=== PATIENT | female | born 1955 | race African-American/Black ===

== ENCOUNTER 2016-05-11 21:28 | Emergency (ER) | payer MEDICAID ==
[2016-05-11 22:33] LABS: BASOPHILS 0.1 % (0.0-2.0); EOSINOPHILS 0.5 % (0-7); HEMATOCRIT 42.6 % (36.0-48.0); HEMOGLOBIN 14.3 g/dL (12-16); IMMATURE GRANULOCYTES 0.1 % (0-5); LYMPHOCYTES 34.9 % (15-50); MCH 30.8 pg (26.0-34.0); MCHC 33.6 g/dL (31.0-37.0); MCV 91.6 fL (80.0-100.0); MEAN PLATELET VOLUME 9.6 fL (7.4-10.4); MONOCYTES 8.7 % (2-11); NEUTROPHILS 55.7 % (40-80); PLATELET COUNT 296 10x3/uL (130-400); RBC 4.65 10x6/uL (4.00-5.40); WBC 7.7 10x3/uL (4.8-10.8)
[2016-05-11 22:49] LABS: ALBUMIN 3.8 g/dL (3.4-5.0); ANION GAP 11.9 mmol/L (8-16); BILIRUBIN - TOTAL 0.3 mg/dL (0.2-1.3); CALCIUM 9.1 mg/dL (8.5-10.1); CREATININE - SERUM 0.9 mg/dL (0.6-1.3); POTASSIUM - SERUM 3.9 mmol/L (3.5-5.1); PROTEIN - SERUM 7.9 g/dL (6.4-8.2)
[2016-05-11 23:36] LABS: APPEARANCE CLEAR (CLEAR); BILIRUBIN NEGATIVE (NEGATIVE); COLOR YELLOW (YELLOW); GLUCOSE 100 mg/dL (NEGATIVE); KETONE NEGATIVE (NEGATIVE); LEUKOCYTE ESTERASE NEGATIVE (NEGATIVE); NITRITE NEGATIVE (NEGATIVE); PROTEIN NEGATIVE (NEGATIVE); SPECIFIC GRAVITY 1.015 (1.005-1.020); UROBILINOGEN NORMAL (NORMAL)
[2016-05-12] MEDS ORDERED: GLYBURIDE5 M1 PO (23:37)
[2016-05-12] MEDS ORDERED: HYDROCODON-ACE1 EAC9 (23:39)
[2016-05-12] MEDS ORDERED: AMBIEN10 MG PO (23:39)
[2016-05-13 13:51] VITALS: BMI 32.9
== END 2016-05-12 00:45 | disposition home or self-care (01) ==
LOC: D.ER 21:28
PROVIDERS: Emergency Medicine
DX: R10.13 Epigastric pain (principal); F17.200 Nicotine dependence, unspecified, uncomplicated

== ENCOUNTER 2016-05-12 17:43 | Inpatient (IN) | payer MEDICAID ==
[~2016-05-12] VITALS: Ht 160 cm; Wt 83.9 kg
--- NOTE | 2016-05-12 18:47 | NUR ---
RECEIVED TO ROOM 2234 FROM MD OFFICE VIA . FAMILY IN ROOM. CALL LIGHT IN REACH.
[2016-05-12 19:00] LABS: BASOPHILS 0 % (0.0-2.0); EOSINOPHILS 0.2 % (0-7); HEMATOCRIT 43.5 % (36.0-48.0); HEMOGLOBIN 14.6 g/dL (12-16); IMMATURE GRANULOCYTES 0.4 % (0-5); LYMPHOCYTES 30.5 % (15-50); MCH 30.9 pg (26.0-34.0); MCHC 33.6 g/dL (31.0-37.0); MEAN PLATELET VOLUME 9.7 fL (7.4-10.4); NEUTROPHILS 57.9 % (40-80); PLATELET COUNT 286 10x3/uL (130-400); RBC 4.73 10x6/uL (4.00-5.40); RDW 12.9 % (11.5-14.5); WBC 8.4 10x3/uL (4.8-10.8)
--- NOTE | 2016-05-12 19:03 | NUR ---
IV SITED TO LEFT FOREARM WITH 22 GA X1 STICK. INFORMED VINCENT STEWART, THAT PATIENT WANTS DEMEROL IVP FOR PAIN. VERBALIZED UNDERSTANDING.
[2016-05-12 19:35] LABS: ALBUMIN 3.9 g/dL (3.4-5.0); ALKALINE PHOSPHATASE 94 U/L (46-116); ALT (SGPT) 36 U/L (10-68); AMYLASE - SERUM 82 U/L (25-115); BILIRUBIN - DIRECT 0.12 mg/dL (0.00-0.30); BILIRUBIN - INDIRECT 0.34 mg/dL (0.00-1.00); BILIRUBIN - TOTAL 0.46 mg/dL (0.2-1.3); CALCIUM 8.6 mg/dL (8.5-10.1); CARBON DIOXIDE 30.7 mmol/L (21.0-32.0); CHLORIDE - SERUM 101 mmol/L (98-107); CREATININE - SERUM 0.7 mg/dL (0.6-1.3); GAMMA GT 70 U/L (5-85); LIPASE 213 U/L (73-393); POTASSIUM - SERUM 4.2 mmol/L (3.5-5.1); PROTEIN - SERUM 8.1 g/dL (6.4-8.2); SODIUM 139 mmol/L (136-145); eGFR NON AFRICAN AMERICAN 90 mL/min (90-120)
[2016-05-12 19:36] LABS: CALC OSMOLALITY 278 mosm/kg (275-300); GLUCOSE 140 mg/dL (74-106); UREA NITROGEN 9 mg/dL (7-18)
[2016-05-12 22:55] VITALS: BP 157/81; BMI 33.0
[2016-05-12] MEDS ORDERED: GLYBURIDE5 M1 PO (23:37)
[2016-05-12] MEDS ORDERED: HYDROCODON-ACE1 EAC9 (23:39)
[2016-05-12] MEDS ORDERED: AMBIEN10 MG PO (23:39)
[2016-05-13 00:04] VITALS: BP 157/81
--- NOTE | 2016-05-13 01:35 | NUR ---
RESTING QUIETLY.NO DISTRESS NOTED. CL IN REACH.
[2016-05-13 03:59] VITALS: BP 142/45
--- NOTE | 2016-05-13 06:12 | NUR ---
AROUSES EASILY TO VERBAL STIMULI. NO DISTRESS NOTED. CL IN REACH.
--- NOTE | 2016-05-13 08:00 | NUR ---
PRN DEMEROL ADMINISTERED FOR ABDOMINAL PAIN 12/28. RELATES SHE HAS NOT SENT A DOCTOR AND WANTS TO KNOW WHAT IS GOING ON AND WANTING SOMETHING TO EAT.
[2016-05-13 08:34] VITALS: BP 143/86
--- NOTE | 2016-05-13 10:37 | NUR ---
DEMEROL 25MG ADMINSTERED TIMES ONE FOR PAIN POST EXAMINATION.
[2016-05-13 12:21] VITALS: BP 134/82
[2016-05-13 13:51] VITALS: Ht 160 cm; Wt 83.9 kg
[2016-05-13 15:10] VITALS: BP 151/74
--- NOTE | 2016-05-13 15:27 | NUR ---
RECEIVED PATIENT LAYING IN BED. FAMILY AT BEDSIDE. RATES PAIN 10/10 TO ABDOMEN. IV D5NS AT 120CC/HR PER LEFT ARM IV. ASKS FOR SOMETHING TO EAT AND WANTS TO KNOW WHEN HER TEST IS GOING TO BE DONE. FAMILY ASKING WHY SHE DOES NOT HAVE SOMETHING ON HER THAT RELATES WHO SHE IS. [place] SHOWED TO FAMILY AND THEY RELATED THEY DID NOT KNOW SHE HAD ONE ON. CALL LIGHT WITHIN REACH AND BED IN LOW POSITION.
--- NOTE | 2016-05-13 15:35 | NUR ---
DOWN FOR PIPIDA SCAN VIA WHEELCAHIR. PATIENT UPSET SHE COULD NOT HAVE PRN PAIN MED FOR 6 HOURS PRIOR TO TEST HOWEVER DID AGREE TO WAIT ON PAIN MED POST TEST.
[2016-05-13 20:00] VITALS: BP 135/82
--- NOTE | 2016-05-13 23:04 | NUR ---
ASSESSED AT THE BEGINNING OF THE SHIFT. PT IS ALERT AND ORIENTED, ABLE TO VERBALIZE NEEDS. SHE WAS C/O HURTING ALL OVER AND ESPECIALLY IN HER STOMACH AT THE BEGINNING OF THE SHIFT. SHE HAD COMPANY AT THE BEDSIDE. IT WAS EXPLAINED TO HER THAT SHE COULD RECEIVE IT AT 2130 AND SHE COULD ALSO TAKE HER SLEEPING PILL WHICH SHE WAS WANTING. SHE AGREED AND RESTED QUIET UNTILL THIS TIME AND THEN TOOK HER MEDS. SINCE THAT TIME SHE HAS BEEN ASLEEP WITH EVEN UNLABORED RESPIRATION AND NO DISTRESS NOTED. THE BED IS LOW, RAILS UP X'S 2 WITH THE CALL LIGHT AT HAND.
[2016-05-14] VITALS (13 sets, daily range): BP systolic 116–136; BP diastolic 63–80
--- NOTE | 2016-05-14 00:36 | NUR ---
PT'S S/S INSULIN HELD FOR BS OF 207 DUE TO THE FACT THAT SHE IS NPO FOR SURGERY IN AM.
--- NOTE | 2016-05-14 04:30 | NUR ---
RESTING WITH EYES CLOSED, RESP WITH EASE, NO DISTRESS NOTED, FALL PRECAUTIONS IN PLACE, CL IN REACH
[2016-05-14 05:44] LABS: BASOPHILS 0.1 % (0.0-2.0); EOSINOPHILS 0.6 % (0-7); HEMATOCRIT 38.3 % (36.0-48.0); HEMOGLOBIN 12.8 g/dL (12-16); IMMATURE GRANULOCYTES 0.3 % (0-5); LYMPHOCYTES 29.6 % (15-50); MCH 30.5 pg (26.0-34.0); MCHC 33.4 g/dL (31.0-37.0); MCV 91.2 fL (80.0-100.0); MEAN PLATELET VOLUME 10.1 fL (7.4-10.4); MONOCYTES 11.7 % (2-11); NEUTROPHILS 57.7 % (40-80); PLATELET COUNT 293 10x3/uL (130-400); RDW 12.8 % (11.5-14.5); WBC 7.8 10x3/uL (4.8-10.8)
[2016-05-14 05:59] LABS: ALKALINE PHOSPHATASE 86 U/L (46-116); ALT (SGPT) 30 U/L (10-68); CALCIUM 8.5 mg/dL (8.5-10.1); CHLORIDE - SERUM 102 mmol/L (98-107); CREATININE - SERUM 0.7 mg/dL (0.6-1.3); LIPASE 168 U/L (73-393); POTASSIUM - SERUM 3.8 mmol/L (3.5-5.1); PROTEIN - SERUM 6.9 g/dL (6.4-8.2); SODIUM 138 mmol/L (136-145); eGFR NON AFRICAN AMERICAN 90 mL/min (90-120)
[2016-05-14 06:14] LABS: ALBUMIN 2.9 g/dL (3.4-5.0); AMYLASE - SERUM 54 U/L (25-115); CALC OSMOLALITY 280 mosm/kg (275-300); GLUCOSE 220 mg/dL (74-106); UREA NITROGEN 6 mg/dL (7-18)
--- NOTE | 2016-05-14 07:25 | NUR ---
PATIENT RECEIVED ALERT IN RIGHT LATERAL POSITION. RESPIRATIONS EVEN AND UNLABORED. SIDE RAISL UP X2. BED IN LOW POSITION. CALL LIGHT IN REACH. DENIES NEEDS.
--- NOTE | 2016-05-14 09:30 | NUR ---
PATIENT ALERRT IN BED. RESPIRATIONS EVEN AND UNLABORED. C/O PAIN 12/28. DEMEROL ADMINISTERED SLOW IVP. PREOP MEDICATION ADMINISTERED. DENIES NEEDS. SIDE RAILS UP X2. BED IN LOW POSITION. CALL LIGHT IN REACH.
--- NOTE | 2016-05-14 10:05 | NUR ---
PATIENT OFF FLOOR TO SURGERY VIA BED
--- NOTE | 2016-05-14 12:20 | NUR ---
PATIENT BACK TO ROOM FROM PACU VIA BED. NO SIGNS OF DISTRESS NOTED. VITAL SIGNS STABLE. FAMILY AT BEDSIDE. SCDS ON BILATERALLY. SIDE RAILS UP X2. BED IN LOW POSITION. CALL LIGHT IN REACH.
--- NOTE | 2016-05-14 12:30 | NUR ---
PATIENT COUGHING. PROVIDED WITH PILLOW AND INSTRUCTED TO SPLINT ABDOMEN WHEN COUGHING. STATES UNDERSTANDING.
--- NOTE | 2016-05-14 13:00 | NUR ---
PATIENT ALERT IN HIGH HOFFMAN POSITION EATING JELLO. TOLERATING WELL. VITAL SIGNS STABLE. SIDE RAILS UP X2. BED IN LOW POSITION. CALL LIGHT IN REACH.
--- NOTE | 2016-05-14 14:00 | NUR ---
ALERT IN HIGH HOFFMAN POSITION TALKING ON PHONE. VITAL SIGNS STABLE. SIDE RAILS UP X2. BED IN LOW PSOITION. CALL LIGHT IN REACH.
--- NOTE | 2016-05-14 16:30 | NUR ---
PATIENT UP AMBULATING IN HALLWAY WITHOUT ASSIST. NO SIGNS OF DISTRESS NOTED.
--- NOTE | 2016-05-14 17:30 | NUR ---
PATIENT SITTING UP IN CHAIR AT BEDSIDE EATING DINNER. ACCU CHECK 117. DENIES NEEDS. CALL LIGHT IN REACH. WILL CONTINUE TO MONITOR.
--- NOTE | 2016-05-14 18:20 | NUR ---
IV TO LEFT FOREARM SWOLLEN. IV D/C WITH CATH TIP INTACT. SITE COVERED WITH GAUZE AND BANDAID.
--- NOTE | 2016-05-14 18:24 | NUR ---
PATIENT TOLERATED 100% OF REGULAR DIET. CURRENTLY UP AMBULATING IN HALLWAY WITHOUT ASSIST. NO SIGNS OF DISTRESS NOTED.
--- NOTE | 2016-05-14 20:30 | NUR ---
PT RESTING IN BED WITH EYES OPEN. ALERT AND ORIENTED X 3. VOICED COMPLAINT OF ABD PAIN LEVEL OF 6. REQUESTED PAIN MEDICATION. MEDICATED PER MAY. 4 INCISIONS TO ABD OR CDI. NO DRAINAGE NOTED. SR'S ARE UP X 3 IN BED. CALL LIGHT AND BEDSIDE TABLE ARE WITHIN EASY REACH. SPOUSE IS AT BEDSIDE.
--- NOTE | 2016-05-14 22:33 | NUR ---
PT IS RESTING IN BED WITH EYES OPEN. NO NEEDS VOICED AT THIS TIME.
--- NOTE | 2016-05-14 23:59 | NUR ---
PT IS RESTING IN BED WITH EYES CLOSED.
[2016-05-15 02:15] VITALS: BP 140/80
--- NOTE | 2016-05-15 02:36 | NUR ---
PT RESTING IN BED WITH EYES CLOSED. NO DISTRESS NOTED.
[2016-05-15 04:00] VITALS: BP 118/66
--- NOTE | 2016-05-15 04:40 | NUR ---
PT IS RESTING QUIETLY IN BED WITH EYES CLOSED. NO ACUTE DISTRESS NOTED.
[2016-05-15 06:45] LABS: BASOPHILS 0.1 % (0.0-2.0); EOSINOPHILS 0.5 % (0-7); HEMATOCRIT 40.9 % (36.0-48.0); HEMOGLOBIN 13.3 g/dL (12-16); IMMATURE GRANULOCYTES 0.2 % (0-5); LYMPHOCYTES 22.4 % (15-50); MCH 30.3 pg (26.0-34.0); MCHC 32.5 g/dL (31.0-37.0); MCV 93.2 fL (80.0-100.0); MEAN PLATELET VOLUME 9.8 fL (7.4-10.4); MONOCYTES 10.6 % (2-11); NEUTROPHILS 66.2 % (40-80); PLATELET COUNT 329 10x3/uL (130-400); RBC 4.39 10x6/uL (4.00-5.40); RDW 12.9 % (11.5-14.5); WBC 9.1 10x3/uL (4.8-10.8)
[2016-05-15 07:00] LABS: ALBUMIN 3.1 g/dL (3.4-5.0); ALKALINE PHOSPHATASE 101 U/L (46-116); ALT (SGPT) 88 U/L (10-68); AMYLASE - SERUM 89 U/L (25-115); CALC OSMOLALITY 273 mosm/kg (275-300); CALCIUM 9.1 mg/dL (8.5-10.1); CARBON DIOXIDE 30.4 mmol/L (21.0-32.0); CHLORIDE - SERUM 100 mmol/L (98-107); CREATININE - SERUM 0.8 mg/dL (0.6-1.3); GLUCOSE 143 mg/dL (74-106); LIPASE 121 U/L (73-393); POTASSIUM - SERUM 3.6 mmol/L (3.5-5.1); PROTEIN - SERUM 7.5 g/dL (6.4-8.2); SODIUM 137 mmol/L (136-145); UREA NITROGEN 6 mg/dL (7-18); eGFR NON AFRICAN AMERICAN 77 mL/min (90-120)
--- NOTE | 2016-05-15 07:08 | NUR ---
PATIENT IN BED WITH IV INTACT. NO COMPLAINTS OR SIGNS OF DISTRESS. EYES CLOSED RESTING QUIETLY. CALL LIGHT WITHIN REACH.
[2016-05-15 07:22] LABS: HEPATITIS C ANTIBODY 0.1 (0.0-0.9)
--- NOTE | 2016-05-15 07:36 | NUR ---
PT RESTING IN BED, COMPLAINTS OF PAIN AND NAUSEA, PT ASSESSMENT COMPLETE, NO OTHER COMPLAINTS, BED LOWEST POSITION, CALL LIGHT IN REACH, SIDE RAILS UP X2, WILL CONTINUE TO MONITOR
[2016-05-15 08:46] VITALS: BP 130/73
[2016-05-15 11:53] VITALS: BP 139/79
--- NOTE | 2016-05-15 15:45 | NUR ---
PT IV PLACED RIGHT FOREARM, TOLERATED WELL, PATENT, NO EDEMA, WILL CONTINUE TO MONITOR
[2016-05-15 16:25] VITALS: BP 145/80
[2016-05-15 20:00] VITALS: BP 143/80
--- NOTE | 2016-05-15 20:30 | NUR ---
REC'D. IN BED DR JAMISON HERE.ABD.MOD. DISTENDED WITH HYPOACTIVE BOWEL SOUNDS ALL QUAD.WITH FOUR BANDAIDES TO LAP SITES DRY AND INTACT.STATES HAS BEEN PASSING SOME GAS THRU THE DAY. ENCOURAGED TO USE PILLOW TO SPLINT ABD. WHEN COUGHING. VOICES UNDERSTANDING
[2016-05-16] VITALS: BP 130/73
[2016-05-16 04:00] VITALS: BP 135/66
[2016-05-16 05:53] LABS: BASOPHILS 0.1 % (0.0-2.0); EOSINOPHILS 0.4 % (0-7); HEMATOCRIT 38.2 % (36.0-48.0); HEMOGLOBIN 12.6 g/dL (12-16); IMMATURE GRANULOCYTES 0.3 % (0-5); LYMPHOCYTES 23.1 % (15-50); MCH 30.5 pg (26.0-34.0); MCV 92.5 fL (80.0-100.0); MEAN PLATELET VOLUME 9.7 fL (7.4-10.4); MONOCYTES 13.4 % (2-11); NEUTROPHILS 62.7 % (40-80); PLATELET COUNT 305 10x3/uL (130-400); RBC 4.13 10x6/uL (4.00-5.40); RDW 12.7 % (11.5-14.5); WBC 7.9 10x3/uL (4.8-10.8)
[2016-05-16 06:32] LABS: ALBUMIN 2.9 g/dL (3.4-5.0); ALKALINE PHOSPHATASE 94 U/L (46-116); ALT (SGPT) 85 U/L (10-68); BILIRUBIN - TOTAL 0.69 mg/dL (0.2-1.3); CALC OSMOLALITY 281 mosm/kg (275-300); CALCIUM 8.9 mg/dL (8.5-10.1); CARBON DIOXIDE 29.9 mmol/L (21.0-32.0); CHLORIDE - SERUM 103 mmol/L (98-107); CREATININE - SERUM 0.7 mg/dL (0.6-1.3); GLUCOSE 160 mg/dL (74-106); LIPASE 119 U/L (73-393); POTASSIUM - SERUM 3.6 mmol/L (3.5-5.1); PROTEIN - SERUM 7.2 g/dL (6.4-8.2); SODIUM 141 mmol/L (136-145); eGFR NON AFRICAN AMERICAN 90 mL/min (90-120)
[2016-05-16 06:34] LABS: AMYLASE - SERUM 61 U/L (25-115); UREA NITROGEN 8 mg/dL (7-18)
--- NOTE | 2016-05-16 06:57 | NUR ---
PATIENT SLEEPING WITH NO DISTRESS NOTED. LAP SITES X3 TO ABD. IV TO RIGHT FA PATENT WITH NO REDNESS OR SWELLING. SCD'S ON. CALL LIGHT WITHIN REACH.
--- NOTE | 2016-05-16 07:15 | NUR ---
REPORT RECEIVED FROM CHILD CARE SPECIALIST NURSE. CALL LIGHT IN REACH.
--- NOTE | 2016-05-16 08:32 | NUR ---
ASSESSMENT COMPLETED. REFUSES TO WEAR SCDs. ALSO REFUSING TO HAVE ANOTHER BAG OF IV FLUIDS SO IV SALINE LOCKED. REFUSES GLYBURIDE. NORCO PO WITH COLACE AND MIRALAX. CALL LIGHT IN REACH. WILL CONTINUE WITH PLAN OF CARE.
[2016-05-16 08:55] VITALS: BP 170/80
--- NOTE | 2016-05-16 09:42 | NUR ---
LYING IN BED WITH EYES CLOSED. RESP EVEN AND UNLABORED. FAMILY MEMBER AT BEDSIDE. CALL LIGHT IN REACH.
--- NOTE | 2016-05-16 11:05 | NUR ---
AMBULATED IN HALLWAY ADLIB. TOLERATED WELL.
--- NOTE | 2016-05-16 11:51 | NUR ---
FSBS 149 SO NO COVERAGE REQUIRED. WANTS A PAIN PILL BUT TOO SOON FOR ADMINISTRATION.
--- NOTE | 2016-05-16 12:34 | NUR ---
NORCO PO PER C/O PAIN OF 8. AT BEDSIDE. CALL LIGHT IN REACH.
[2016-05-16 12:55] VITALS: BP 113/65
[2016-05-16] MEDS ORDERED: COLACE100 MG PO (14:36)
--- NOTE | 2016-05-16 14:44 | NUR ---
WALKING IN HALLWAY AGAIN. NO DISTRESS NOTED.
--- NOTE | 2016-05-16 15:37 | NUR ---
AWAKE ALERT COLOR ADQ FAMILY AT BEDSIDE DENIES ANY NEEDS AT THIS TIME WAITING ON MD TO GO HOME.
--- NOTE | 2016-05-16 17:26 | NUR ---
PROTONIX IVP PER ORDER. NORCO PO. FSBS 145. REFUSED DIABETA. AT BEDSIDE. CALL LIGHT IN REACH.
--- NOTE | 2016-05-16 18:04 | NUR ---
NO CHANGES IN INITIAL ASSESSMENT. STILL REFUSES SCDs AND STILL WAITING ON MD SO SHE CAN POSSIBLY GET DISCHARGED. AT BEDSIDE. CALL LIGHT IN REACH. WILL CONTINUE WITH PLAN OF CARE.
--- NOTE | 2016-05-16 19:30 | NUR ---
DR JAMISON ROUNDS. PATIENT REPORTS THAT SHE IS READY TO GO HOME. STILL HAS SOME NAUSEA AT TIMES. DR JAMISON STATES THAT HE WILL SEND HER HOME WITH SOME ZOFRAN.
--- NOTE | 2016-05-16 20:00 | NUR ---
DISCHARGE INSTRUCTION AND PRESCRIPTIONS GIVEN. IV REMOVED WITH CATH TIP INTACT. PATIENT DENIES ANY NEEDS OR QUESTIONS. WHEELED TO FRONT ENTRANCE AND ASSISTED TO PRIVATE VEHICLE. NO SIGNS OF DISTRESS NOTED.
[2016-05-16] MEDS ORDERED: ZOFRAN ODT4 MG/UDTAB PO (21:15)
[2016-05-16] MEDS ORDERED: HYDROCODON-ACE1 EAC7 PO (21:16)
--- NOTE | 2016-05-20 13:01 | OP ---
PATIENT NAME: CLIFF MORGAN MEDICAL RECORD: [id number] :55 LOCATION:[id number] ADMISSION DATE:05/13/16 SURGEON: AMOR DOWNS MD DATE OF OPERATION: 05/14/2016 PREOPERATIVE DIAGNOSES: 1. Biliary dyskinesia. 2. Diabetes mellitus. 3. Chronic obstructive pulmonary disease. 4. Gastroesophageal reflux disease. POSTOPERATIVE DIAGNOSES: 1. Biliary dyskinesia. 2. Diabetes mellitus. 3. Chronic obstructive pulmonary disease. 4. Gastroesophageal reflux disease. PROCEDURE: Laparoscopic cholecystectomy. SURGEON: Amor Downs MD. REPORT OF PROCEDURE: The patient's abdomen was prepped and draped in sterile fashion. A cutdown was made on the superior aspect of the umbilicus, 0 Vicryls were placed in the fascia bilaterally and the fascia was incised with 15-blade. I then bluntly entered the peritoneal cavity and placed a 12-mm Lucho port. Under direct visualization, a 5 mm trocar was placed in the epigastrium and 2 more 5-mm trocars were placed in the right subcostal region. The gallbladder was grasped and elevated. The cystic artery and cystic duct were dissected free and these were clipped proximally and distally and ligated in standard fashion. The gallbladder was then taken off the liver bed using electrocautery and placed in the right upper quadrant. Any bleeding from the liver bed was then treated with electrocautery. We irrigated out the right upper quadrant and assured there was no sign of any bleeding or bile leakage. At this point, the ports and insufflation were then removed and the gallbladder was taken out through the umbilicus. The umbilical fascia was closed with interrupted 0 Vicryls times 3. The wounds were irrigated out with normal saline and infused with 10 mL of 0.25% Marcaine with epinephrine. The skin incisions were all closed with subcutaneous 5-0 Monocryl and dressed appropriately. COMPLICATIONS: None. CONDITION: Stable. ANESTHESIA: General endotracheal and local. BLOOD LOSS: Minimal. TRANSINT:[id number] Voice Confirmation ID: [id number] DOCUMENT ID: [id number] OPERATIVE REPORT [id number] CLIFF MORGAN AMOR DOWNS MD at 1301 CC: BETHANIE KRUEGER MD [phone] DICTATION DATE: 05/14/16 6590 DIRECTOR OF MARKETING [employer] ADS: 05/14/16 1644 DIS IN 05/16/16 [facility] [address] [facility] [place] [address]
== END 2016-05-16 23:54 | disposition home or self-care (01) | DRG 419 ==
LOC: D.MS 17:43 → OBSVTIME 17:44 → D.MS 05-13 21:59
PROVIDERS: Family Medicine; Surgery; ADMIT Family Medicine
PROC: 0FT44ZZ Resection of Gallbladder, Percutaneous Endoscopic Approach (ICD-10-PCS; principal; 2016-05-14 10:45)
DX: K82.8 Other specified diseases of gallbladder (principal); K76.0 Fatty (change of) liver, not elsewhere classified; J45.909 Unspecified asthma, uncomplicated; E11.65 Type 2 diabetes mellitus with hyperglycemia; J44.9 Chronic obstructive pulmonary disease, unspecified; K21.9 Gastro-esophageal reflux disease without esophagitis; F17.200 Nicotine dependence, unspecified, uncomplicated

== ENCOUNTER 2016-09-13 01:14 | Emergency (ER) | payer MEDICAID ==
[2016-05-13 13:51] VITALS: BMI 32.9
[~2016-09-13 01:14] MED LIST: AMBIEN10 MG PO; COLACE100 MG PO; GLYBURIDE5 M1 PO; HYDROCODON-ACE1 EAC7 PO; HYDROCODON-ACE1 EAC9; ZOFRAN ODT4 MG/UDTAB PO
[2016-09-13 01:46] LABS: BASOPHILS 0 % (0-2); EOSINOPHILS 0.5 % (0-7); HEMATOCRIT 41.8 % (36.0-48.0); IMMATURE GRANULOCYTES 0.2 % (0-5); LYMPHOCYTES 22.1 % (15-50); MCH 31.3 pg (26.0-34.0); MCHC 33.5 g/dL (31.0-37.0); MCV 93.3 fL (80.0-100.0); MONOCYTES 9.8 % (2-11); NEUTROPHILS 67.4 % (40-80); PLATELET COUNT 310 10x3/uL (130-400); RBC 4.48 10x6/uL (4.00-5.40); RDW 13.2 % (11.5-14.5); WBC 8.1 10x3/uL (4.8-10.8)
[2016-09-13 01:52] LABS: APPEARANCE CLEAR (CLEAR); BILIRUBIN NEGATIVE (NEGATIVE); COLOR YELLOW (YELLOW); GLUCOSE NEGATIVE (NEGATIVE); KETONE NEGATIVE (NEGATIVE); LEUKOCYTE ESTERASE NEGATIVE (NEGATIVE); NITRITE NEGATIVE (NEGATIVE); PROTEIN NEGATIVE (NEGATIVE); SPECIFIC GRAVITY 1.015 (1.005-1.020); UROBILINOGEN NORMAL (NORMAL)
[2016-09-13 02:00] LABS: ALBUMIN 3.6 g/dL (3.4-5.0); BILIRUBIN - TOTAL 0.4 mg/dL (0.2-1.3); CALCIUM 9.1 mg/dL (8.5-10.1); CARBON DIOXIDE 29.8 mmol/L (21.0-32.0); CREATININE - SERUM 0.9 mg/dL (0.6-1.3); POTASSIUM - SERUM 3.8 mmol/L (3.5-5.1)
== END 2016-09-13 02:24 | disposition home or self-care (01) ==
LOC: D.ER 01:14
PROVIDERS: Emergency Medicine
DX: K59.00 Constipation, unspecified (principal); E11.9 Type 2 diabetes mellitus without complications; F17.200 Nicotine dependence, unspecified, uncomplicated

== ENCOUNTER 2016-09-13 07:08 | Inpatient (IN) | payer MEDICAID ==
[~2016-09-13] VITALS: Ht 160 cm; Wt 82.7 kg
[2016-09-13 08:13] LABS: BASOPHILS 0 % (0-2); EOSINOPHILS 0 % (0-7); HEMATOCRIT 43.4 % (36.0-48.0); HEMOGLOBIN 14.3 g/dL (12-16); IMMATURE GRANULOCYTES 0.1 % (0-5); LYMPHOCYTES 17.6 % (15-50); MCH 30.8 pg (26.0-34.0); MCHC 32.9 g/dL (31.0-37.0); MCV 93.5 fL (80.0-100.0); MEAN PLATELET VOLUME 9.9 fL (7.4-10.4); MONOCYTES 6.2 % (2-11); NEUTROPHILS 76.1 % (40-80); PLATELET COUNT 313 10x3/uL (130-400); RBC 4.64 10x6/uL (4.00-5.40); RDW 13.2 % (11.5-14.5); WBC 8.1 10x3/uL (4.8-10.8)
[2016-09-13 08:36] LABS: ALBUMIN 3.8 g/dL (3.4-5.0); ANION GAP 12.7 mmol/L (8-16); BILIRUBIN - TOTAL 0.6 mg/dL (0.2-1.3); CALCIUM 9.5 mg/dL (8.5-10.1); CARBON DIOXIDE 27.3 mmol/L (21.0-32.0); CREATININE - SERUM 0.9 mg/dL (0.6-1.3); PROTEIN - SERUM 8.4 g/dL (6.4-8.2)
[2016-09-13 08:40] LABS: APPEARANCE HAZY (CLEAR); COLOR YELLOW (YELLOW); LEUKOCYTE ESTERASE NEGATIVE (NEGATIVE); SPECIFIC GRAVITY 1.015 (1.005-1.020)
[2016-09-13 08:41] LABS: BILIRUBIN NEGATIVE (NEGATIVE); GLUCOSE 250 mg/dL (NEGATIVE); KETONE NEGATIVE (NEGATIVE); NITRITE NEGATIVE (NEGATIVE); PROTEIN 1+ mg/dL (NEGATIVE); UROBILINOGEN NORMAL (NORMAL)
[2016-09-13 08:43] LABS: UDS - AMPHET NEGATIVE QUAL (NEGATIVE); UDS - BARB NEGATIVE QUAL (NEGATIVE); UDS - BENZO NEGATIVE QUAL (NEGATIVE); UDS - COCAINE NEGATIVE QUAL (NEGATIVE); UDS - METH NEGATIVE QUAL (NEGATIVE); UDS - OPIATE POSITIVE QUAL (NEGATIVE); UDS - PCP NEGATIVE QUAL (NEGATIVE); UDS - THC NEGATIVE QUAL (NEGATIVE)
--- NOTE | 2016-09-13 13:05 | NUR ---
[id number] TO ROOM 2236 VIA WC. A/O X3. NG TO RIGHT NARE PATENT WITH BLOODY DRAINAGE. FAMILY AT BEDSIDE. DENIES NEEDS. SKIN IS INTACT WITHOUT REDNESS.
[2016-09-13 13:11] VITALS: Ht 160 cm; Wt 82.7 kg
[2016-09-13 13:19] VITALS: BP 143/77
--- NOTE | 2016-09-13 14:30 | NUR ---
GIVEN FLEETS ENEMA PER ORDERS. UP TO [facility] [place] WITH S[place]. HAD HUGE FORMED STOOL. SKIN CARE PER SELF. REPORTS NO FURTHER PAIN AFTER STOOL.
--- NOTE | 2016-09-13 15:15 | NUR ---
NG D/C TO RIGHT NARE WITHOUT DIFFICULTY. PATIENT FEELS VERY MUCH BETTER NOW.
[2016-09-13 20:00] VITALS: BP 140/69
--- NOTE | 2016-09-13 20:45 | NUR ---
REC'D PATIENT WALKING AROUND ROOM. ALERT AND ORIENTED X4. DENIED PAIN AT THIS TIME. NO DISTRESS NOTED. REPORTED THAT SHE TAKES AMBIEN AT NIGHT FOR SLEEP. CALLED FARHAD GAMA, AND SHE TOLD ME TO RESTART THE ORDER. RESTARTED AND ADMIN PRESCRIBED. WILL CONT TO MONITOR. DENIED FURTHER NEEDS AT THIS TIME. INSTRUCTED TO CALL IF NEEDED ANYTHING. BED LOW, LOCKED, CALL LIGHT IN REACH.
--- NOTE | 2016-09-13 23:48 | NUR ---
IV IN THE LEFT AC INFILTRATED. RECITED TO THE RIGHT FORARM. IS PATENT AND FLUSHES. WILL CONT TO MONITOR THROUGHOUT NIGHT.
[2016-09-14 04:00] VITALS: BP 137/95
[2016-09-14 05:02] LABS: BASOPHILS 0 % (0-2); EOSINOPHILS 0.3 % (0-7); HEMATOCRIT 39.7 % (36.0-48.0); HEMOGLOBIN 12.9 g/dL (12-16); IMMATURE GRANULOCYTES 0.3 % (0-5); LYMPHOCYTES 36.4 % (15-50); MCH 30.9 pg (26.0-34.0); MCHC 32.5 g/dL (31.0-37.0); MEAN PLATELET VOLUME 11.4 fL (7.4-10.4); MONOCYTES 13.7 % (2-11); NEUTROPHILS 49.3 % (40-80); PLATELET COUNT 238 10x3/uL (130-400); RBC 4.18 10x6/uL (4.00-5.40); RDW 13.6 % (11.5-14.5)
[2016-09-14 05:28] LABS: ALBUMIN 2.9 g/dL (3.4-5.0); ALKALINE PHOSPHATASE 78 U/L (46-116); ALT (SGPT) 35 U/L (10-68); CALC OSMOLALITY 283 mosm/kg (275-300); CALCIUM 8.4 mg/dL (8.5-10.1); CARBON DIOXIDE 30.3 mmol/L (21.0-32.0); CHLORIDE - SERUM 107 mmol/L (98-107); CREATININE - SERUM 0.8 mg/dL (0.6-1.3); POTASSIUM - SERUM 3.6 mmol/L (3.5-5.1); PROTEIN - SERUM 6.9 g/dL (6.4-8.2); SODIUM 142 mmol/L (136-145); UREA NITROGEN 9 mg/dL (7-18); eGFR NON AFRICAN AMERICAN 77 mL/min (90-120)
--- NOTE | 2016-09-14 05:28 | NUR ---
ASLEEP. NO DISTRESS NOTED. WILL CONT TO MONITOR. BED LOW, LOCKED CALL LIGHT IN REACH.
[2016-09-14 05:34] LABS: GLUCOSE 129 mg/dL (74-106)
[2016-09-14 08:58] VITALS: BP 139/76
[2016-09-14 11:44] VITALS: BP 115/66
--- NOTE | 2016-09-14 12:07 | NUR ---
TO MRI PER WC.
--- NOTE | 2016-09-14 13:07 | NUR ---
IV REMOVED WITH TIP INTACT. DISCHARGE INSTRUCTIONS REVIEWED WITH PT. QUESTIONS ANSWERED. TO CALL WHEN DRESSED FOR WC
[2016-09-15 10:20] LABS: CEA 3.1 ng/mL (0.0-4.7)
== END 2016-09-14 13:23 | disposition home or self-care (01) | DRG 390 ==
LOC: D.ER 07:08 → D.MS 11:32 → D.SDCHOLD 11:32 → D.MS 12:44
PROVIDERS: Emergency Medicine; Family Medicine; ADMIT Surgery
DX: K56.60 Unspecified intestinal obstruction (principal); E11.65 Type 2 diabetes mellitus with hyperglycemia; Z79.4 Long term (current) use of insulin; J45.909 Unspecified asthma, uncomplicated; K86.9 Disease of pancreas, unspecified